=== PATIENT | male | born 1985 | race African-American/Black ===

== ENCOUNTER 2021-03-29 19:00 | Emergency (ER) | payer SELFPAY ==
[2021-03-29] MEDS ORDERED: Naloxone 2 MG/2 ML Syringe NAS ONE (19:48)
--- NOTE | 2021-03-29 19:56 | EDM.PDOC ---
ED HPI GENERAL MEDICAL PROBLEM - General Chief Complaint: Drug or Alcohol Abuse Stated Complaint: CLEARANCE FOR DETOX Time Seen by Provider: 03/29/21 19:34 Source of Information: Reports: Patient, Police (Officer Neymar reports that he was sleeping in a chair in a hotel in which he was not a registered guess), RN Notes Reviewed History Limitations: Reports: Intoxication (pt will answer questions, but falls back asleep swiftly) - History of Present Illness INITIAL COMMENTS - FREE TEXT/NARRATIVE: Patient is a 35-year-old male who presents to the ER via [employer] for m edical clearance. Patient was apparently found at a local hotel, sleeping in a chair, for which he was not a guest. Story from police states that they have been "chasing this joaquim all day". Patient is very sleepy, but arousable enough to answer very general questions. special weapons unit officer states that he also is more coherent when he is walking however he is somewhat stumbly. No discernible fevers, cough, shortness of breath or any sort of visible nausea, no reported vomiting or diarrhea. Patient will not admit to using any sort of substances like alcohol or otherwise tonight. - Related Data Allergies Allergy/AdvReac Type Severity Reaction Status Date / Time No Known Allergies Allergy Verified 03/29/21 19:36 Home Meds: Home Meds . [Unable to Verify Home Med List] 03/29/21 [History] Past Medical History - Past Health History Medical/Surgical History: Denies Medical/Surgical History ED ROS GENERAL - Review of Systems Review Of Systems: Comprehensive ROS is negative, except as noted in HPI. - Physical Exam Exam: See Below Exam Limited By: No Limitations General Appearance: Alert (pt is arousable and does follow commands), WD/WN, No Apparent Distress Eye Exam: Bilateral Eye: EOMI, Normal Inspection, PERRL Respiratory/Chest: No Respiratory Distress, Lungs Clear, Normal Breath Sounds, No Accessory Muscle Use, Chest Non-Tender Cardiovascular: Normal Peripheral Pulses, Regular Rate, Rhythm, No Edema Neuro Exam (Abbreviated): Alert, Normal Cognition (pt is sleepy but arousable), No Motor/Sensory Deficits Extremities: Normal Inspection, Normal Capillary Refill Psychiatric: Normal Affect, Normal Mood Skin Exam: Warm, Dry, Intact, Normal Color, No Rash Course - Vital Signs Last Recorded V/S: Last Vital Signs Temp 98.3 F 11/19/21 19:32 Pulse 73 03/29/21 19:32 Resp 16 03/29/21 19:32 BP 129/53 L 03/29/21 19:32 Pulse Ox 93 L 03/29/21 19:32 - Orders/Labs/Meds Meds: Medications Discontinued Medications Generic Name Dose Route Start Last Admin Trade Name Savanna PRN Reason Stop Dose Admin Naloxone HCl 4 mg 03/29/21 19:48 Naloxone 2 Mg/2 Ml Syringe SHIMON 03/29/21 19:49 ONETIME ONE - Re-Assessments/Exams Free Text/Narrative Re-Assessment/Exam: 03/29/21 19:56 Patient presents to the ER for medical clearance to be sent to the local [facility]. We did try 1 dose of 2 mg intranasal Narcan to see if this would help improve his situation however it did not. Patient likely has ingested possible alcohol versus marijuana. As the police artist did state that when he picked him up "he wanted a snack out of his bag". Due to finding no acute physical exam findings, and the patient not complaining of anything we will release him into police custody and he can sleep this off. Departure - Departure Time of Disposition: 19:58 Disposition: Home, Self-Care 01 Condition: Good Clinical Impression: Medical clearance for incarceration - Discharge Information *PRESCRIPTION DRUG MONITORING PROGRAM REVIEWED*: No *COPY OF PRESCRIPTION DRUG MONITORING REPORT IN PATIENT KEMAL: No Instructions: Alcohol Intoxication, [id number] Referrals: PCP,None [Primary Care Provider] - Additional Instructions: You were evaluated in the ER tonight for your intoxication. You had a thorough medical exam performed, and although you are quite intoxicated, no emergent medical needs were identified on today's exam, and you are deemed fit to go to [facility] to sober up. Please return to the ER at any time if symptoms change or worsen. Sepsis Event Note (ED) - Evaluation Sepsis Screening Result: No Definite Risk - Focused Exam Vital Signs: Vital Signs Temp Pulse Resp BP Pulse Ox 03/29/21 19:32 98.3 F 73 16 129/53 L 93 L
== END 2021-03-29 20:05 | disposition home or self-care (01) ==
LOC: JD.ED 19:00
DX: Z02.89 Encounter for other administrative examinations (principal)
CPT/HCPCS: 99283; J2310